=== PATIENT | male | born 1990 | race Caucasian/White ===

== ENCOUNTER 2020-03-29 15:28 | Emergency (ER) | payer SELFPAY ==
[~2020-03-29] VITALS: Ht 170.2 cm; Wt 98.4 kg
--- NOTE | 2020-03-29 15:28 | NUR ---
PT BIB SELF C/O L SCROTAL PAIN. PT IS AAOX4, NOT IN RESPIRATORY DISTRESS, V/S STABLE, KEPT RESTED AND COMFORTABLE. WILL CONTINUE TO MONITOR.
--- NOTE | 2020-03-29 15:30 | NUR ---
PER ADMITTING PT WALK IN COMPLETELY FINE NO COMPLAINTS OF PAIN AND SUDDENLY APPROACHING THE WINDOW PT STARTED SCREAMING FOR PAIN.
--- NOTE | 2020-03-29 15:42 | NUR ---
SEEN AND EXAMINED BY .
[2020-03-29] MEDS ORDERED: KETOROLAC TROMETHAMINE INJ 30 MG/ML VIAL ONE (15:47)
[2020-03-29] MEDS ORDERED: KETOROLAC TROMETHAMINE INJ 60 MG/2 ML VIAL IM ONE (16:00)
--- NOTE | 2020-03-29 16:10 | NUR ---
TECH AT BEDSIDE FOR SCROTAL US.
[2020-03-29 16:32] VITALS: BP 118/77
--- NOTE | 2020-03-29 16:32 | NUR ---
Patient discharged to home in stable condition. Written and verbal after care instructions given. Patient verbalizes understanding of instruction.
== END 2020-03-29 16:32 | disposition home or self-care (01) ==
LOC: ER 15:31
DX: N50.82 Scrotal pain (principal)
CPT/HCPCS: 76870; 96372; 99284; J1885